=== PATIENT | female | born 1950 | race Caucasian/White ===

== ENCOUNTER 2020-10-05 07:35 | Day surgery (SDC) | payer MEDICARE ==
[~2020-10-05 07:35] MED LIST: Bupivacaine 0.5% 50 ML MDV ONE; Lidocaine 1% with EPINEPHrine 1:100,000 50 ML MDV ONE; Sodium Chloride 0.9% 10 ML ONE; Sodium Tetradecyl Sulfate 1% 20 MG/2 ML SDV ONE
[2020-10-05] MEDS ORDERED: Sodium Chloride 0.9% 1,000 ML IV SCH (08:30)
[2020-10-05] MEDS ORDERED: fentaNYL 100 MCG/2 ML SDV ONE (08:43)
[2020-10-05] MEDS ORDERED: Midazolam 1 MG/ML 2 ML SDV ONE (08:43)
[2020-10-05] MEDS ORDERED: Propofol 200 MG/20 ML SDV ONE ×2 (08:44→09:19)
[2020-10-05] MEDS: Lidocaine 1% w/EPINEPHrine 50 ML, Sodium Bicarbonate 5 MEQ in Sodium Chloride 0.9% 950 ML INJECT ONE ×2 (09:38→10:36)
[2020-10-05] MEDS ORDERED: Lidocaine 1% w/EPINEPHrine 50 ML, Sodium Bicarbonate 5 MEQ in Sodium Chloride 0.9% 950 ML INJECT ONE (09:45)
[2020-10-05] MEDS ORDERED: Sodium Chloride 0.9% 10 ML SDV ONE (10:28)
--- NOTE | 2020-10-06 17:55 | OR ---
DATE OF PROCEDURE: 10/05/2020 SURGEON: Jaren Castanon MD PROCEDURES PERFORMED: 1. Radiofrequency ablation of right greater saphenous vein, distal leg. 2. Sclerotherapy, left leg. 3. Sclerotherapy, right leg, multiple. 4. Compression wrap, right leg (21035). COMPLICATIONS: None. COUNSELOR AID: None. ANESTHESIA: MAC. PREOPERATIVE DIAGNOSIS: Venous insufficiency with inflammation and pain. POSTOPERATIVE DIAGNOSIS: Venous insufficiency with inflammation and pain. RISKS: Risks, benefits, alternatives, and limitations including, but not limited to infection, bleeding, DVT formation along with other risks not listed were explained to the patient who wished to proceed. PROCEDURE IN DETAIL: The patient was placed in supine position. The left greater saphenous and vasculature were interrogated. There was not an area that was amenable to RFA on the left side. On the right side, there were significant tortuousities, but the distal aspect of the greater saphenous vein was able to be addressed. This was accessed level of the ankle with a 21-gauge needle, then exchanged for a 35,000th wire, then exchanged for a 7- [place] sheath. The RFA probe was advanced to approximately the level of the knee. Tumescence was injected in a 1 cm jacket around this. Direct even pressure was held as the probe was deployed x2 proximally and distally and x1 in all other segments. Sheath and device were then removed, and direct pressure was held. Dermabond was applied. Sclerotherapy was performed on the left and right legs using 0.33% sodium tetradactyl. This was always drawn back to ensure intravascular injection only. No more than 2 mL was injected in one location, 6 on the right, 7 on the left. Two-layer two-stage compression wrapping was performed on the right leg. This was a distal to proximal gradient. The patient tolerated the procedure well. Jaren Castanon MD /[id number]
--- NOTE | 2020-10-23 17:58 | OR ---
DATE OF PROCEDURE: 10/05/2020 SURGEON: Jaren Castanon MD ADDENDUM: In addition to her RFA procedure, the patient also had a hematoma on her right forehead. This was prepped and draped. This was anesthetized with 1% lidocaine. A single patricia was created in the skin and hematoma was able to be evacuated without difficulty. The patient tolerated the procedure well. Jaren Castanon MD /[id number]
== END 2020-10-05 11:30 | disposition home or self-care (01) ==
LOC: JP.SDS 07:35
PROVIDERS: ATTEND Surgery
DX: I83.813 Varicose veins of bilateral lower extremities with pain (principal); E78.5 Hyperlipidemia, unspecified; I25.2 Old myocardial infarction; I12.9 Hypertensive chronic kidney disease with stage 1 through stage 4 chronic kidney disease, or unspecified chronic kidney disease; N18.30 Chronic kidney disease, stage 3 unspecified; Z86.73 Personal history of transient ischemic attack (TIA), and cerebral infarction without residual deficits; S00.83XA Contusion of other part of head, initial encounter
CPT/HCPCS: 10140; 36470; 36471; 36475; 76998; J1642; J2250; J2704; J3010; J7030; J3490

== ENCOUNTER 2021-02-16 07:04 | Day surgery (SDC) | payer MEDICARE ==
[2021-02-16] MEDS ORDERED: Sodium Chloride 0.9% 1,000 ML IV SCH (07:30)
[2021-02-16] MEDS ORDERED: Midazolam 1 MG/ML 2 ML SDV ONE (07:39)
[2021-02-16] MEDS ORDERED: Propofol 200 MG/20 ML SDV ONE (07:39)
[2021-02-16] MEDS ORDERED: fentaNYL 100 MCG/2 ML SDV ONE (07:39)
--- NOTE | 2021-02-16 12:14 | OR ---
DATE OF PROCEDURE: SURGEON: Jaren Castanon MD PROCEDURE: Colonoscopy. FINDINGS: 1. Ascending colon polyp, approximately 5 mm, completely removed using cold biopsy forceps. 2. No other etiology to explain diarrhea. COMPLICATION: None. CARBIDE OPERATOR: None. RISKS: Risks, benefits, alternatives, and limitations including, but not limited to infection, bleeding, perforation, false positives, false negatives. PREOPERATIVE DIAGNOSIS: Screening colonoscopy/history of diarrhea. POSTOPERATIVE DIAGNOSIS: Screening colonoscopy/history of diarrhea. DESCRIPTION OF PROCEDURE: Patient was placed in left lateral decubitus position. Digital rectal exam was performed without abnormality. Scope was introduced and advanced atraumatically to ileocecal valve. A photo was taken of the appendiceal orifice. Scope was brought back to the ascending, transverse, descending colon, and retroflexed. No evidence of old or new blood. No masses. The aforementioned polyp was identified and completely removed. The patient did not have any inflammation or concerning areas for colitis. No etiology for the diarrhea. Greater than 8 minutes was spent removing the scope. The prep was acceptable, approximately 90% of luminal surface could be seen. The patient tolerated the procedure well. Jaren Castanon MD /[id number]
== END 2021-02-16 09:47 | disposition home or self-care (01) ==
LOC: JP.SDS 07:04
PROVIDERS: ATTEND Surgery
DX: D12.2 Benign neoplasm of ascending colon (principal); E78.5 Hyperlipidemia, unspecified; I25.2 Old myocardial infarction; Z86.73 Personal history of transient ischemic attack (TIA), and cerebral infarction without residual deficits
CPT/HCPCS: 45380; J2250; J2704; J3010; J7030